=== PATIENT | male | born 1970 | race Caucasian/White ===

== ENCOUNTER 2022-06-02 09:47 | Outpatient (CLI) | payer OTHER, SELFPAY ==
[2022-06-02 11:38] LABS: Albumin* 4.3 g/dL (3.3-5.0); Chloride* 103 mmol/L (96-114)
[2022-06-02 11:39] LABS: Potassium* 5.2 mmol/L (3.6-5.1); Sodium* 138 mmol/L (135-149)
[2022-06-02 11:41] LABS: Cholesterol* 245 mg/dL (90-199); Creatinine* 0.9 mg/dL (0.5-1.5); Estimated Glomerular Filt Rate 103 ml/min
[2022-06-02 11:42] LABS: Alanine Aminotransferase* 25 U/L (4-50); Alkaline Phosphatase* 72 U/L (40-150); Aspartate Amino Transferase* 27 U/L (12-35); Bilirubin Total* 1.4 mg/dL (0.1-1.5); Blood Urea Nitrogen* 16 mg/dL (7-30); Calcium* 9.4 mg/dL (8.4-10.6); Carbon Dioxide* 29 mmol/L (20-32); Glucose* 100 mg/dL (60-115); HDL Cholesterol* 67 mg/dL (>=40); LDL Cholesterol Calculated 154 mg/dL (<100); Total Protein* 7.5 g/dL (6.0-8.3); Triglycerides* 120 mg/dL (40-149)
[2022-06-02 12:14] LABS: PSA Screen* 0.89 ng/mL (0.10-4.00)
== END 2022-06-02 09:48 | disposition home or self-care (01) ==
PROVIDERS: PCP Family Medicine; Visit Provider Family Medicine
DX: Z00.00 Encounter for general adult medical examination without abnormal findings (principal); E78.5 Hyperlipidemia, unspecified; Z12.5 Encounter for screening for malignant neoplasm of prostate
CPT/HCPCS: 80053; 80061; 84153

== ENCOUNTER 2023-01-15 13:09 | Outpatient (CLI) | payer OTHER, SELFPAY ==
[2023-01-15 23:15] LABS: Chlamydia DNA Amplified* NOT DETECTED (No Detected); GC DNA Amplified* NOT DETECTED (No Detected)
== END 2023-01-15 13:10 | disposition home or self-care (01) ==
PROVIDERS: PCP Family Medicine; Visit Provider Student in an Organized Health Care Education/Training Program
DX: R39.89 Other symptoms and signs involving the genitourinary system (principal); R30.0 Dysuria
CPT/HCPCS: 0353U; 87086

== ENCOUNTER 2023-01-15 19:05 | Inpatient (IN) | payer OTHER, SELFPAY ==
[2023-01-15 19:12] VITALS: BP 122/95; PULSE 90; RESP 18; TEMP 37.2; O2SAT 99; BMI 24.3
--- NOTE | 2023-01-15 19:27 | CRLHL7_ITS ---
For Patients: As a result of the Century Cures Act, medical imaging exams and procedure reports are released immediately into your electronic medical record. You may view this report before your referring provider. If you have questions, please contact your health care provider. INDICATION: Lower abdominal pain. Possible diverticulitis. TECHNIQUE: CT abdomen and pelvis acquired with 97 mL Isovue 370 contrast. COMPARISON: None. FINDINGS: Lower chest: Subsegmental atelectasis in the base of the right middle lobe. No focal consolidation. Liver: No suspicious focal hepatic lesion. Gallbladder and bile ducts: Unremarkable. Pancreas: Unremarkable. Spleen: Unremarkable. Splenule is noted. Adrenal glands: Unremarkable. Kidneys: Kidneys enhance symmetrically, without hydronephrosis. Retroperitoneum: No lymphadenopathy. Bowel and mesentery: Normal appendix. Multiple loops of dilated fluid-filled small bowel in the abdomen compatible with small bowel obstruction, transition point appears to be in the left lower quadrant. Configuration of the dilated small bowel raises concern for closed loop obstruction. Mild volume ascites, likely reactive. No pneumoperitoneum. Bladder: Circumferential bladder wall thickening, likely secondary to underdistention. Reproductive organs: No prostatomegaly. Subcentimeter prostatic cyst is noted. Pelvic lymph nodes: No lymphadenopathy. Vessels: Unremarkable. Abdominal wall: No acute abdominal wall abnormality. Bones: Multilevel degenerative changes of the spine. No suspicious/aggressive focal osseous lesion. IMPRESSION: 1. Multiple loops of dilated fluid-filled small bowel consistent with small bowel obstruction. Configuration raises concern for component of closed loop obstruction. Transition point appears to be in the left lower quadrant of the abdomen. 2. Circumferential urinary bladder wall thickening, likely secondary to underdistention. Recommend correlation with urinalysis. Please note that all CT scans at this facility use dose modulation, iterative reconstruction, and/or weight-based dosing when appropriate to reduce radiation dose to as low as reasonably achievable. Dictated by Elvis Quintero MD @ 01/15/2023 8:41:25 PM (Electronically Signed)
[2023-01-15 19:41] LABS: Basophils Percent Auto 0.4 % (0.0-3.0); Eosinophils Percent Auto 0.6 % (0.0-7.0); Hematocrit 43.9 % (37.0-53.0); Hemoglobin* 15.3 gm/dL (13.5-17.5); Immature Granulocytes Pct Auto 0.2 %; Lymphocytes Percent Auto 13.7 % (20-44); Mean Corpuscular HGB Conc 35 gm/dL (32-36); Mean Corpuscular Hemoglobin 30 pg (26-34); Mean Corpuscular Volume 86 fL (80-100); Monocytes Percent Auto 5.6 % (0.0-11.0); Neutrophils Percent Auto 79.5 % (42.0-72.0); Platelet Count* 276 K/uL (140-440); Red Blood Count 5.12 m/uL (4.30-5.90); White Blood Count* 11.22 K/uL (4.50-11.00)
[2023-01-15 19:45] LABS: Slide Review Reflex No
[2023-01-15 19:57] LABS: Albumin* 4.6 g/dL (3.3-5.0)
[2023-01-15 19:58] LABS: Chloride* 100 mmol/L (96-114); Potassium* 4.2 mmol/L (3.6-5.1); Sodium* 134 mmol/L (135-149)
[2023-01-15 20:00] LABS: Amylase* 74 U/L (18-89); Creatinine* 0.8 mg/dL (0.5-1.5); Estimated Glomerular Filt Rate 106 ml/min
[2023-01-15 20:01] LABS: Alkaline Phosphatase* 59 U/L (40-150); Aspartate Amino Transferase* 27 U/L (12-35); Bilirubin Direct* 0.1 mg/dL (0.0-0.5); Bilirubin Total* 2.3 mg/dL (0.1-1.5); Blood Urea Nitrogen* 9 mg/dL (7-30); Carbon Dioxide* 26 mmol/L (20-32); Glucose* 118 mg/dL (60-115); Lipase* 133 U/L (23-300)
[2023-01-15 20:02] LABS: Alanine Aminotransferase* 29 U/L (4-50); Calcium* 9.4 mg/dL (8.4-10.6)
[2023-01-15 20:04] LABS: C Reactive Protein* < 0.5 mg/dL (0.5-1.0)
--- NOTE | 2023-01-15 20:06 | ED.ABDPAIN ---
HPI - Abdominal Pain General Date Seen: 01/15/23 Chief Complaint: Abdominal Pain Stated Complaint: Abdominal pain Time Seen by Provider: 01/15/23 19:06 Source: patient Mode of arrival: ambulatory Limitations: no limitations History of Present Illness HPI narrative: Patient is a very nice 52-year-old gentleman who presents here for evaluation of lower abdominal pain that he has had for today, thought maybe had a bladder infection he feels a fullness down there, but has been urinating normally with no dysuria. Thought maybe also might be constipated but had 1 normal stool him 1 looser stool, has not eaten anything today and feels not really hungry, notices it when he walks he actually has less pain than when he sits and does nothing. Not take any ibuprofen or Tylenol for this, or any other afcf-ejk-lbbmtdt medications. Denies a fevers chills or sweats, denies nausea vomiting. No previous abdominal surgeries, he does have a history of allergies, and male pattern baldness Pertinent past history: none Onset (ago): day(s) Pain Consistency: constant Location: RLQ and LLQ Severity: moderate Quality: cramping and fullness Radiation: none Migration to: no migration Exacerbating factors: nothing Relieving factors: movement Associated symptoms: denies other symptoms Related Data Home Medications Medication Instructions Recorded Confirmed immunotherapy drops sublingual 06/04/22 01/15/23 montelukast 10 mg tablet 10 mg PO .Bedtime 06/04/22 01/15/23 minoxidil 2 % topical solution 1 ml topical BID 01/15/23 01/15/23 (Rogaine) Allergies Allergy/AdvReac Type Severity Reaction Status Date / Time No Known Allergies Allergy Unknown Verified 01/15/23 19:46 Review of Systems Status of ROS Reports: 10 or more systems reviewed and unremarkable except as noted in History and below [facility] Medical History Allergy to cats ?J30.81 - Allergic rhinitis due to animal (cat) (dog) hair and dander (ICD-10) Dyslipidemia ?E78.5 - Hyperlipidemia, unspecified (ICD-10) Fatigue ?R53.83 - Other fatigue (ICD-10) Pain in both knees ?M25.561 - Pain in right knee (ICD-10) ?M25.562 - Pain in left knee (ICD-10) Surgical History No history of previous surgery Family History Aunt Myocardial infarction, Onset Age: 42 Father Alcoholism Paternal Grandfather Alcoholism Social History Narrative: exercise involving walking- dog 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 non-smoker rarely consumes alcohol Smoking Status: Never smoker Little interest or pleasure in doing things: not at all Feeling down, depressed, or hopeless: not at all Exam Narrative: Exam Narrative: On examination room 3 patient is in no apparent distress he is pleasant and alert, able to stand up and walk around the room, pupils are equal round reactive to light there is no scleral icterus or redness TMs are normal oropharynx is normal, cranial nerves 3-12 are normal, neck is supple no meningismus, chest is clear bilaterally with no wheezing crackles noted, heart sounds are normal, abdomen shows some tenderness in lower quadrants bilaterally, left probably greater than right but also cross suprapubic pubic. No peritoneal signs, bowel sounds are quiet, no organomegaly, no CVA tenderness, normal male genitalia, no hernias, circumcised male. Extremities are all normal normal [place]lton upper lower extremities. Const: Vital Signs, click to edit/add: Vital Signs - 24 hr 01/15/23 19:12 Temperature 98.9 F Pulse Rate [Pulse Oximeter] 90 Respiratory Rate 18 Blood Pressure [Ri ght Upper Arm] 122/95 H Pulse Oximetry 99 Oxygen Delivery Me thod Room Air Documenting provider has reviewed patient's vital signs: yes Course Course Hospital Course: Reviewed the CT scanning findings with the patient this shows a possible closed loop obstruction, consultation was done with Dr. Barbara Rasheed From General surgery, she has come in to see the patient, and recommends after reviewing the CT and CT report that the patient go to the operating room for laparoscopy procedure, discussed this with the patient, the patient's and they will discuss this further with Dr. Rasheed. Vital Signs Vital signs: Initial Vital Signs Temperature 98.9 F 01/15/23 19:12 Temperature Source Temporal Artery Scan 01/15/23 19:12 Pulse Rate 90 01/15/23 19:12 Pulse Rhythm Regular 01/15/23 19:12 Pulse Strength 3+ Normal 01/15/23 19:12 Respiratory Rate 18 01/15/23 19:12 Blood Pressure 122/95 H 01/15/23 19:12 Blood Pressure Mean 104 01/15/23 19:12 Blood Pressure Position Sitting 01/15/23 19:12 Pulse Oximetry 99 01/15/23 19:12 Oxygen Delivery Method Room Air 01/15/23 19:12 Vital Signs Temperature 98.9 F 01/15/23 19:12 Pulse Rate 90 01/15/23 19:12 Respiratory Rate 18 01/15/23 19:12 Blood Pressure 122/95 H 01/15/23 19:12 Pulse Oximetry 99 01/15/23 19:12 Oxygen Delivery Method Room Air 01/15/23 19:12 Temperature 98.9 F 01/15/23 19:12 Pulse Rate 90 01/15/23 19:12 Respiratory Rate 18 01/15/23 19:12 Blood Pressure 122/95 H 01/15/23 19:12 Pulse Oximetry 99 01/15/23 19:12 Oxygen Delivery Method Room Air 01/15/23 19:12 MDM - Abdominal Pain MDM Narrative Medical decision making narrative: During this evaluation of this patient I considered multiple differential diagnosis is which included the life-threatening such as appendicitis, aortic aneurysm, mesenteric ischemia, bowel perforation, volvulus, and bowel obstruction. Other differential diagnosis is include but are not limited to cholecystitis, pancreatitis, hepatitis, gastritis, GERD, diverticulitis, peptic ulcer disease, pyelonephritis/UTI, renal colic/stone, testicular torsion as well as other acute scrotal processes, inflammatory bowel disease, as well as other etiologies Medical Records Attestation: I reviewed the patient's medical records. Lab Data Attestation: I reviewed the patient's lab results. Labs: Lab Results 01/15/23 Range/Units 19:31 WBC 11.22 H (4.50-11.00) K/uL RBC 5.12 (4.30-5.90) m/uL Hgb 15.3 (13.5-17.5) gm/dL Hct 43.9 (37.0-53.0) % MCV 86 (80-100) fL MCH 30 (26-34) pg MCHC 35 (32-36) gm/dL RDW Coeff of Jaelyn 12.0 (11.5-15.5) % Plt Count 276 (140-440) K/uL Neut % (Auto) 79.5 H (42.0-72.0) % Lymph % (Auto) 13.7 L (20-44) % [place] % (Auto) 5.6 (0.0-11.0) % Eos % (Auto) 0.6 (0.0-7.0) % Baso % (Auto) 0.4 (0.0-3.0) % Neut # (Auto) 8.90 H (1.7-7.0) K/uL Lymph # (Auto) 1.50 (0.90-2.90) K/uL [place] # (Auto) 0.60 (0.00-0.90) K/UL Eos # (Auto) 0.10 (0.00-0.50) K/uL Baso # (Auto) 0.00 (0.00-0.30) K/uL Sodium 134 L (135-149) mmol/L Potassium 4.2 (3.6-5.1) mmol/L Chloride 100 (96-114) mmol/L Carbon Dioxide 26 (20-32) mmol/L BUN 9 (7-30) mg/dL Creatinine 0.8 (0.5-1.5) mg/dL Estimated Creat Clear 131.10 Estimated GFR 106 ml/min Glucose 118 H (60-115) mg/dL Calcium 9.4 (8.4-10.6) mg/dL Total Bilirubin 2.3 H (0.1-1.5) mg/dL Direct Bilirubin 0.1 (0.0-0.5) mg/dL AST 27 (12-35) U/L ALT 29 (4-50) U/L Alkaline Phosphatase 59 (40-150) U/L C-Reactive Protein < 0.5 L (0.5-1.0) mg/dL Total Protein 8.0 (6.0-8.3) g/dL Albumin 4.6 (3.3-5.0) g/dL Amylase 74 (18-89) U/L Lipase 133 (23-300) U/L Imaging Data CT scan - abdomen: Radiologist's impression: Patient: MICHELLE STRONG Facility:?[facility] Patient ID:?[id number] Site Patient ID:?[id number]. Site :?[id number] Study:?CT Abdomen/Pelvis w/ 97cc [id number] 7:57:23 PM Ordering Physician:Ethan Self Final Report: INDICATION: Lower abdominal pain. Possible diverticulitis. TECHNIQUE: CT abdomen and pelvis acquired with 97 mL Isovue 370 contrast. COMPARISON: None. FINDINGS: Lower chest: Subsegmental atelectasis in the base of the right middle lobe. No focal consolidation. Liver: No suspicious focal hepatic lesion. Gallbladder and bile ducts: Unremarkable. Pancreas: Unremarkable. Spleen: Unremarkable. Splenule is noted. Adrenal glands: Unremarkable. Kidneys: Kidneys enhance symmetrically, without hydronephrosis. Retroperitoneum: No lymphadenopathy. Bowel and mesentery: Normal appendix. Multiple loops of dilated fluid-filled small bowel in the abdomen compatible with small bowel obstruction, transition point appears to be in the left lower quadrant. Configuration of the dilated small bowel raises concern for closed loop obstruction. Mild volume ascites, likely reactive. No pneumoperitoneum. Bladder: Circumferential bladder wall thickening, likely secondary to underdistention. Reproductive organs: No prostatomegaly. Subcentimeter prostatic cyst is noted. Pelvic lymph nodes: No lymphadenopathy. Vessels: Unremarkable. Abdominal wall: No acute abdominal wall abnormality. Bones: Multilevel degenerative changes of the spine. No suspicious/aggressive focal osseous lesion. IMPRESSION: 1. Multiple loops of dilated fluid-filled small bowel consistent with small bowel obstruction. Configuration raises concern for component of closed loop obstruction. Transition point appears to be in the left lower quadrant of the abdomen. 2. Circumferential urinary bladder wall thickening, likely secondary to underdistention. Recommend correlation with urinalysis. Please note that all CT scans at this facility use dose modulation, iterative reconstruction, and/or weight-based dosing when appropriate to reduce radiation dose to as low as reasonably achievable. Dictated by Elvis Quintero MD @ 01/15/2023 8:41:25 PM (Electronic Signature) Discharge Plan Discharge Clinical Impression: Complete obstruction of small intestine Patient Disposition: Admitted As Inpatient Condition: Stable Prescriptions: No Action montelukast 10 mg tablet 10 mg PO .Bedtime immunotherapy drops sublingual minoxidil [Rogaine] 2 % solution 1 ml topical BID Follow Up/Referrals: Sarah Pascal MD [Primary Care Provider] -
[2023-01-15] MEDS: KETOROLAC 30 MG/ML inj IVP (20:20)
[2023-01-15] MEDS: 0.9 % SODIUM CHLORIDE 1000 ml 1,000 ML IV (20:20)
[2023-01-15] MEDS: 0.9 % SODIUM CH + KCL 20 mEq/L 1,000 ML 125 ML IV (21:34)
[2023-01-15 21:48] LABS: PCR FLU A Negative PCR FLU A (Negative); PCR FLU B Negative PCR FLU B (Negative); SARS PCR* Negative SARS-CoV-2 (Negative)
--- NOTE | 2023-01-15 21:49 | PM.GSCN ---
History of Present Illness Consult details Date Seen: 01/15/23 Consult date: 01/15/23 Narrative: Patient presented to the emergency department with worsening lower abdominal pain and discomfort. He states that the pain started yesterday evening around 11:30 p.m.. Initially he felt a sensation of fullness, like he had to urinate. He did go to the bathroom to pee, but this did not relieve any of the pressure or fullness. He also had 2 small bowel movements. He was unable to sleep last night secondary to the discomfort. All day today the pain persisted. He did present to Urgent Care, where a UA was obtained and within normal limits. He was sent home, but he felt a easy about the abdominal discomfort and he thought that the pain was increasing in intensity, which is what brought him into the emergency department. He has never had pain like this before. He does not think he has been passing gas today. Denies any emesis, but has been having some intermittent nausea. He has never had abdominal surgery before. He is otherwise healthy. Review of Systems Status of ROS: Reports: 10 or more systems reviewed and unremarkable except as noted in History and below [facility] Medical History Allergy to cats ?J30.81 - Allergic rhinitis due to animal (cat) (dog) hair and dander (ICD-10) Dyslipidemia ?E78.5 - Hyperlipidemia, unspecified (ICD-10) Fatigue ?R53.83 - Other fatigue (ICD-10) Pain in both knees ?M25.561 - Pain in right knee (ICD-10) ?M25.562 - Pain in left knee (ICD-10) Surgical History No history of previous surgery Family History Aunt Myocardial infarction, Onset Age: 42 Father Alcoholism Paternal Grandfather Alcoholism Social History Narrative: exercise involving walking- dog 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 non-smoker rarely consumes alcohol Smoking Status: Never smoker Little interest or pleasure in doing things: not at all Feeling down, depressed, or hopeless: not at all Meds Home Medications and Allergies Home Medications Medication Instructions Recorded Confirmed Type immunotherapy drops sublingual 06/04/22 01/15/23 History montelukast 10 mg tablet 10 mg PO .Bedtime 06/04/22 01/15/23 History minoxidil 2 % topical solution 1 ml topical BID 01/15/23 01/15/23 History (Rogaine) Allergies Allergy/AdvReac Type Severity Reaction Status Date / Time No Known Allergies Allergy Unknown Verified 01/15/23 19:46 Exam Narrative: Exam Narrative: General: Alert and oriented, no acute distress. Nontoxic in appearance. Respiratory: Equal breath rise bilaterally, maintained on room air CV: Regular rhythm rate, well perfused Abdomen: Mild distention, soft, tender to palpation in the lower quadrants and around the umbilicus with no guarding or rebound. Const: Vital Signs, click to edit/add: Vital Signs - 24 hr 01/15/23 19:12 Temperature 98.9 F Pulse Rate [Pulse Oximeter] 90 Respiratory Rate 18 Blood Pressure [Ri ght Upper Arm] 122/95 H Pulse Oximetry 99 Oxygen Delivery Me thod Room Air Results Labs Labs: Abnormal lab results 01/15/23 Range/Units 19:31 WBC 11.22 H (4.50-11.00) K/uL Neut % (Auto) 79.5 H (42.0-72.0) % Lymph % (Auto) 13.7 L (20-44) % Neut # (Auto) 8.90 H (1.7-7.0) K/uL Sodium 134 L (135-149) mmol/L Glucose 118 H (60-115) mg/dL Total Bilirubin 2.3 H (0.1-1.5) mg/dL C-Reactive Protein < 0.5 L (0.5-1.0) mg/dL Diabetes panel 01/15/23 Range/Units 19:31 Sodium 134 L (135-149) mmol/L Potassium 4.2 (3.6-5.1) mmol/L Chloride 100 (96-114) mmol/L Carbon Dioxide 26 (20-32) mmol/L BUN 9 (7-30) mg/dL Creatinine 0.8 (0.5-1.5) mg/dL Glucose 118 H (60-115) mg/dL Calcium 9.4 (8.4-10.6) mg/dL AST 27 (12-35) U/L ALT 29 (4-50) U/L Alkaline Phosphatase 59 (40-150) U/L Total Protein 8.0 (6.0-8.3) g/dL Albumin 4.6 (3.3-5.0) g/dL Calcium panel 01/15/23 Range/Units 19:31 Calcium 9.4 (8.4-10.6) mg/dL Albumin 4.6 (3.3-5.0) g/dL Pituitary panel 01/15/23 Range/Units 19:31 Sodium 134 L (135-149) mmol/L Potassium 4.2 (3.6-5.1) mmol/L Chloride 100 (96-114) mmol/L Carbon Dioxide 26 (20-32) mmol/L BUN 9 (7-30) mg/dL Creatinine 0.8 (0.5-1.5) mg/dL Glucose 118 H (60-115) mg/dL Calcium 9.4 (8.4-10.6) mg/dL Adrenal panel 01/15/23 Range/Units 19:31 Sodium 134 L (135-149) mmol/L Potassium 4.2 (3.6-5.1) mmol/L Chloride 100 (96-114) mmol/L Carbon Dioxide 26 (20-32) mmol/L BUN 9 (7-30) mg/dL Creatinine 0.8 (0.5-1.5) mg/dL Glucose 118 H (60-115) mg/dL Calcium 9.4 (8.4-10.6) mg/dL Total Bilirubin 2.3 H (0.1-1.5) mg/dL AST 27 (12-35) U/L ALT 29 (4-50) U/L Alkaline Phosphatase 59 (40-150) U/L Total Protein 8.0 (6.0-8.3) g/dL Albumin 4.6 (3.3-5.0) g/dL All other labs normal. Imaging Abdomen CT scan report/results: report reviewed and image reviewed Assessment and Plan Assessment and plan (1) Complete obstruction of small intestine: Status: Acute Plan Patient is an otherwise healthy 52-year-old male who presents with a one-day history abdominal distension and pain. Workup has been obtained with vital signs stable and labs within normal limits. CT scan does demonstrate what appears to be a closed loop bowel obstruction with evidence of some mesenteric twisting. No masses seen on the scan and no evidence of any necrotic bowel. Patient has never had abdominal surgery before. Findings could be secondary to an internal hernia versus congenital scar tissue. Cancer is always considered as a possible lead point in the setting of no previous surgery, however no lymphadenopathy or mass is seen on CT imaging. He has had 1 colonoscopy, with no findings at that time. The findings were reviewed with the patient and his , as well as my recommendations to proceed to the operating room for an exploratory laparotomy with possible small-bowel resection. Risks and benefits of operative intervention were discussed at length with the patient. Risks included but was not limited to: Bleeding, infection, risk of damage to surrounding structures, possible need for additional procedures and postoperative complications such as pneumonia, pulmonary emboli or [place]. All questions and concerns were addressed with the patient agreeing to proceed.
[2023-01-15] MEDS: LACTATED RINGERS 1000 ML 1,000 ML 100 ML IV (22:16)
[2023-01-15] MEDS: CEFAZOLIN 2 GM INJ IVP (22:26)
[2023-01-16] VITALS (36 sets, daily range): BP systolic 104–132; BP diastolic 64–89; PULSE 73–103; RESP 14–18; TEMP 36.5–37.4; O2SAT 93–98
--- NOTE | 2023-01-16 00:09 | P.GSOP_ITS ---
Operative Note Date of procedure: 01/16/23 Pre-op diagnosis: Closed loop small-bowel obstruction Post-op diagnosis: Same Type of Procedure: Exploratory laparotomy Indications: Patient is a 52-year-old male who presented to the emergency department with workup consistent with small-bowel obstruction. A CT scan was obtained which demonstrated a closed loop obstruction. Risks and benefits of operative intervention were discussed at length with the patient. Risks included but was not limited to: Bleeding, infection, risk of damage to surrounding structures, possible need for additional procedures, and postoperative complications such as pneumonia, pulmonary emboli or [place]. All questions and concerns were addressed with the patient agreeing to proceed. Procedure Description: After discussing the risks and benefits of the procedure, the patient signed informed consent.? The operative site was marked and the patient was brought to the operating room and placed on the operating table in supine position.? Care was taken to pad the patient's pressure points.?? The patient was then intubated by anesthesia.??A Saab catheter was placed under sterile conditions. An NG tube was placed by the PNEUMATIC HOIST OPERATOR. The operative site was then prepped and draped in the usual sterile fashion.? A time-out was then performed. An inferior midline incision was made with a 15 scalpel. Dissection was carried through subcutaneous tissue with cautery down to the anterior fascia. The fascia was incised with cautery to allow a finger through. The anterior fascia was then extended cranial and caudad. The underlying peritoneum was carefully dissected free and sharply incised. The peritoneal incision was then extended cranial and caudad with electrocautery. Upon entering the abdomen a moderate amount of murky fluid was present. There was dilated bowel within the operative field. This was gently eviscerated and the bowel run distally. As the bowel was eviscerated there was a point of transition identified. At this area there was an initial compression, consistent with a stricture point. The bowel was palpated and there was no intraluminal masses identified. The bowel distal to this point was decompressed. At this time the decision was made to extend the incision to just above the umbilicus. A large [place]a wound retractor was placed within the abdomen. The bowel was then run from ligament of Treitz to terminal ileum with no areas of bowel compromise identified and no additional points of transition seen. The small bowel was then placed carefully back into the abdomen, taking care not to twist the mesentery. The right and left lower pelvic quadrants were examined closely, with no adhesions or tissue defects identified to suggest an internal hernia. The right side of the colon was carefully examined. The appendix was visualized and within normal limits. There were some lateral attachments of the terminal ileum, but again no mesenteric defects identified. The left side of the colon was also examined closely with a defect noted along the lateral wall of the colon. This was approximately 2 cm in size and closed with a stitch of 3-0 Vicryl. The liver, spleen and stomach were examined and all within normal limits. The overlying omentum was lifted to again visualize the ligament of Treitz, with no mesenteric defects revisualized. The fascial incision was then closed with 2 looped 0 Maxon suture. The incision was irrigated with normal saline. The incision was closed in layers with interrupted 3 0 Vicryl and running 4-0 Monocryl. ? Sterile dressings were then applied. ? The patient was then woken and transported to the recovery area in stable condition. ? The patient tolerated the procedure well. Findings: Transition point mid ileum. Small tissue defect of the lateral abdominal wall suggestive of internal hernia. Anesthesia: GETA Surgeon: Barbara Rasheed MD Estimated blood loss (mL): 2 Condition: stable Disposition: floor
--- NOTE | 2023-01-16 00:14 | SUR.OPER ---
NG INSERTED AT START OF CASE PER ANTISQUEAK FILLER AT REQUEST OF
--- NOTE | 2023-01-16 00:31 | P.NB_ITS ---
Nerve Block Nerve Block Time Seen by Provider: 00:15 Date Seen: 01/16/23 Type of block requested by surgeon for post-operative analgesia: TAP Side: bilateral Time out performed: Yes Verification of patient name: Yes Verification of date of : Yes Site marking: not applicable Name of person performing procedure: steven Continuous monitoring Was continuous monitoring of O2 sat, B/P, quality assurance monitor body, recorded every 15 minutes?: Yes Procedure Checklist: sterile prep, needles and gloves Ultrasound guided. Images saved: Yes Medications given in 5ml increments after negative aspiration: Marcaine %: 0.25 mL: 30 Needle gauge: 20 and Exparel mL: 10 Patient tolerated procedure well: Yes Block Charges Block Charge (with Pro Fee): TAP Bilateral Use of Ultrasound Machine for Block: Yes- US Guidance/pain block
--- NOTE | 2023-01-16 00:32 | W.ANESCHARGE ---
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
[2023-01-16] MEDS: 0.9 % SODIUM CHLORIDE 1000 ml 1,000 ML 125 ML IV ×3 (01:30→17:36)
--- NOTE | 2023-01-16 06:34 | PC.NURSE ---
END OF SHIFT NOTE: PT PLEASANT,?COOPERATIVE AND FATIGUED. EX LAP SX 01/15 FOR ABD PAIN/SBO. PT ARRIVED TO M/S UNIT @0057. NG PLACED IN LEFT NARE AT LIS WITH GREEN, BLOOD-TINGED OUTPUT.?PT RATES MIDLINE INCISIONAL PAIN 10/28. DRESSING IS CDI.?PT DENIES?CP, SOB, N/V. WATERS IN PLACE DRAINING LIGHT KIMBERLY?URINE. VSS ON RA; AFEBRILE. BED ALARM ON AND CALL LIGHT WITHIN PT?S REACH. PT HAS BEEN NPO AND DID NOT AMBULATE THIS SHIFT.?
--- NOTE | 2023-01-16 14:04 | PC.NURSE ---
Patient alert and oriented x 3. Reports minimal pain to abdominal incision, rated 1/10, no medications needed throughout this shift. NG and snyder catheter discontinued, patient tolerated well. CLear liquid diet, no nausea or vomiting reported. Ambulated throughout the unit with stand by assist. Able to pass urine after snyder removed. Lungs clear, bowel sounds active x 4 quadrants.
--- NOTE | 2023-01-16 18:06 | PC.NURSE ---
[id number]: Patient doing well. Patient has no c/o abdominal pain, shortness of breath, n/v, or chest pain. Patient still not passing gas yet and no bowel movement but does have active bowel sounds. Patient incision bandage c/d/i with small amount of old drainage on bandage. Patient tolerating foods well. Patient ate toast, chicken noodle soup and freeze pop for dinner. Patient tolerated dinner well. Nursing spoke with Dr. Rasheed whom states that was fine for dinner but to leave patient on clears until he starts to pass gas or has a bowel movement. Nursing communicated this with patient and encouraged patient to increase oral liquids and increase ambulation. Patient ambulated around pod x2 with no dizziness, lightheadedness or shortness of breath. Patient with no complaints. Patient vitally stable. Patient able to verbalize needs and is call light appropriate. Nursing will continue to monitor patient throughout shift.
[2023-01-17 01:50] VITALS: BP 132/75; PULSE 82; RESP 18; TEMP 36.9; O2SAT 95
--- NOTE | 2023-01-17 04:47 | PC.NURSE ---
[id number]: Patient pleasant and cooperative. Denies pain and declines pain medications. Passing gas and belching. BS active. Patient active and observed walking in halls. Denies N/V. Tolerating clears. Midline dressing to abdomen C/D/I with small amount old drainage. Ice to op site.
[2023-01-17 06:40] LABS: Basophils Absolute Auto 0.04 K/uL (0.00-0.30); Basophils Percent Auto 0.5 % (0.0-3.0); Eosinophils Absolute Auto 0.32 K/uL (0.00-0.50); Eosinophils Percent Auto 4.2 % (0.0-7.0); Hematocrit 37.8 % (37.0-53.0); Hemoglobin* 12.9 gm/dL (13.5-17.5); Immature Granulocytes Abs Auto 0.02 K/uL (0.00-0.30); Immature Granulocytes Pct Auto 0.3 %; Lymphocytes Absolute Auto 2.01 K/uL (0.90-2.90); Lymphocytes Percent Auto 26.7 % (20-44); Mean Corpuscular HGB Conc 34 gm/dL (32-36); Mean Corpuscular Hemoglobin 30 pg (26-34); Mean Corpuscular Volume 88 fL (80-100); Monocytes Percent Auto 8.5 % (0.0-11.0); Neutrophils Absolute Auto 4.51 K/uL (1.7-7.0); Neutrophils Percent Auto 59.8 % (42.0-72.0); Platelet Count* 228 K/uL (140-440); RDW Coefficient of Variation % 12.5 % (11.5-15.5); Red Blood Count 4.32 m/uL (4.30-5.90); White Blood Count* 7.54 K/uL (4.50-11.00)
[2023-01-17 06:49] LABS: Slide Review Reflex No
[2023-01-17 06:54] LABS: Chloride* 106 mmol/L (96-114); Potassium* 3.9 mmol/L (3.6-5.1); Sodium* 137 mmol/L (135-149)
[2023-01-17 06:57] LABS: Blood Urea Nitrogen* 7 mg/dL (7-30); Calcium* 8.5 mg/dL (8.4-10.6); Carbon Dioxide* 30 mmol/L (20-32); Creatinine* 0.7 mg/dL (0.5-1.5); Est. Creatinine Clearance* 149.83; Estimated Glomerular Filt Rate 110 ml/min; Glucose* 103 mg/dL (60-115)
[2023-01-17 07:00] VITALS: BP 110/75; PULSE 85; RESP 18; RESP 22; TEMP 37.1; O2SAT 95
[2023-01-17] MEDS: ACETAMINOPHEN 325 MG TABLET 650 MG PO (08:10)
--- NOTE | 2023-01-17 09:55 | PM.GSPN ---
Subjective Subjective Date Seen: 01/16/23 Interval history: Patient is doing ok this morning. Denies any nausea, has not yet passed gas. Has been ambulating. Pain is well controlled. Exam Narrative: Exam Narrative: Gen: Alert and oriented, no acute distress Resp: clear breath sounds bilaterally CV: RRR Abdomen: appropriately tender over incision site, dressing c/d/i, no guarding or rebound Const: Vital Signs, click to edit/add: Vital Signs - 24 hr 01/16/23 11:00 01/16/23 15:00 01/16/23 15:00 Temperature 98.9 F 98.7 F Pulse Rate 89 79 Respiratory Rate 18 18 18 Blood Pressure 109/68 126/70 Pulse Oximetry 97 97 Oxygen Delivery Me thod Room Air Room Air 01/16/23 20:33 01/16/23 22:01 01/17/23 01:50 Temperature 98.7 F 98.7 F 98.5 F Pulse Rate 87 80 82 Respiratory Rate 18 18 18 Blood Pressure 123/76 123/70 132/75 Pulse Oximetry 97 96 95 Oxygen Delivery Me thod Room Air Room Air Room Air Progress Note: A&P Assessment and plan (1) Complete obstruction of small intestine: Status: Acute Assessment and Plan: Patient is postop day 1 exploratory laparotomy for complete obstruction. With no evidence of adhesions, questionable internal hernia with tissue defect closed intraoperatively. Doing well postoperatively. Will continue with clear liquids and wait to advance diet until patient passes gas. NG tube and Saab were removed at bedside this morning.
--- NOTE | 2023-01-17 09:58 | PM.DS1 ---
DS: Providers Provider Date Seen: 01/17/23 Date of admission: 01/16/23 16:30 Primary care physician: Sarah Pascal MD Admitting Clinician: Barbara Rasheed MD Attending Physician on discharge: Barbara Rasheed MD DS: Summary Hospital Course Hospital Course: Patient presented to the emergency department with worsening abdominal pain and signs of obstruction. A CT scan was obtained which demonstrated close loop obstruction. He was taken to the operating room for an exploratory laparotomy. The bowel was run with a transition point noted and area of possible herniation. The defect was closed, small-bowel was run and appeared healthy. On postop day 1 NG tube and Saab were removed. On postop day 2 patient was passing gas and tolerating a diet. His pain was well controlled with oral medications, he was ambulating without difficulty and voiding independently. Time Spent with Patient Time attestation: Total time spent providing and/or coordinating discharge services: Exam Const: Vital Signs, click to edit/add: Vital Signs - 24 hr 01/16/23 11:00 01/16/23 15:00 01/16/23 15:00 Temperature 98.9 F 98.7 F Pulse Rate 89 79 Respiratory Rate 18 18 18 Blood Pressure 109/68 126/70 Pulse Oximetry 97 97 Oxygen Delivery Me thod Room Air Room Air 01/16/23 20:33 01/16/23 22:01 01/17/23 01:50 Temperature 98.7 F 98.7 F 98.5 F Pulse Rate 87 80 82 Respiratory Rate 18 18 18 Blood Pressure 123/76 123/70 132/75 Pulse Oximetry 97 96 95 Oxygen Delivery Me thod Room Air Room Air Room Air DS: Data Data Completed and Pending Labs on day of discharge: Labs from last 24 hours 01/17/23 06:00 WBC 7.54 RBC 4.32 Hgb 12.9 L Hct 37.8 MCV 88 MCH 30 MCHC 34 RDW Coeff of Jaelyn 12.5 Plt Count 228 Neut % (Auto) 59.8 Lymph % (Auto) 26.7 Norman % (Auto) 8.5 Eos % (Auto) 4.2 Baso % (Auto) 0.5 Neut # (Auto) 4.51 Lymph # (Auto) 2.01 Norman # (Auto) 0.60 Eos # (Auto) 0.32 Baso # (Auto) 0.04 Sodium 137 Potassium 3.9 Chloride 106 Carbon Dioxide 30 BUN 7 Creatinine 0.7 Estimated Creat Clear 149.83 Estimated GFR 110 Glucose 103 Calcium 8.5 Discharge Plan Discharge Disposition: Home, Self-Care Date of Admission: 01/16/23 16:30 Attending Provider on Discharge: Barbara Rasheed Primary Care Provider: Sarah Pascal Condition: Stable Anticipated Discharge Date/Time: 01/17/23 10:00 Discharge Medications: New oxycodone 5 mg tablet 5 mg PO Q6H PRN (Reason: pain) Qty: 10 0RF senna 8.6 mg capsule 8.6 mg PO DAILY PRN (Reason: constipation) Qty: 90 0RF Continued montelukast 10 mg tablet 10 mg PO HS immunotherapy drops 1 ea sublingual DAILY minoxidil [Rogaine] 2 % solution 1 ml topical BID Discharge Orders: Discharge Order (Routine); Ordered 01/17/23 Ordered By: Barbara Rasheed Patient Education: Bowel Obstruction (DC) Additional Instructions: You were prescribed a narcotic pain medication. In addition you may supplement with Tylenol and/or ibuprofen. Be sure to not exceed greater than 4 g of Tylenol in a 24 hour period. While on narcotic pain medicine please take stool softeners. A prescription of stool softeners has been sent to the pharmacy. Stop if having greater than 2 stools per day. You can start showering right away. Do not soak in a bath or swim for 2 weeks. Allow Steri-Strips to fall off on their own. Activity Level: No strenuous activity Activity Detail: Activity as tolerated. Avoid strenuous activity. No lifting greater than 20 lb for 6 weeks. You can wear an abdominal binder as needed for comfort. Discharge Diet: Regular Follow Up Appointments: Barbara Rasheed MD [Staff Physician] - (Two week follow-up) Forms: [employer] Info Instructions
[2023-01-17] MEDS: bisacodyL 10 MG SUPP.RECT PR (10:11)
--- NOTE | 2023-01-17 12:00 | PC.NURSE ---
AVS reviewed. All concerns addressed. Patient vitally stable. Patient passing gas appropriately and has active bowel sounds. patient has no n/v. Patient discharged to home.
== END 2023-01-17 10:02 | disposition home or self-care (01) | DRG 358 ==
LOC: ED 21:28 → SS 21:48 → MEDSURG 01-16 01:08 → SS 01-17 16:28 → MEDSURG 01-17 16:28
PROVIDERS: Admitting Provider Surgery; Emergency Provider Family Medicine; PCP Family Medicine; Visit Provider Surgery
PROC: 0DJD0ZZ Inspection of Lower Intestinal Tract, Open Approach (ICD-10-PCS; CPT 49000; principal; 2023-01-15 21:45)
DX: K56.601 Complete intestinal obstruction, unspecified as to cause (principal); E78.5 Hyperlipidemia, unspecified
CPT/HCPCS: 00840; 0353U; 36415; 74177; 76942; 80048; 80076; 82150; 83690; 85025; 86140; 87631; 99140; 99285; A9270; J0330; J0690; J1100; J1885; J2250; J2405; J2704; J3010; J3475; J3490; J7030; J7120; Q9967

== ENCOUNTER 2023-06-03 07:42 | Outpatient (CLI) | payer OTHER, SELFPAY | END 2023-06-03 07:43 | disposition home or self-care (01) | LOC: NFLDREF 06-07 14:40 | PROVIDERS: PCP Family Medicine; Referring Provider Family Medicine; Visit Provider Family Medicine | DX: Z00.00 Encounter for general adult medical examination without abnormal findings (principal); Z13.9 Encounter for screening, unspecified; E78.5 Hyperlipidemia, unspecified; Z12.5 Encounter for screening for malignant neoplasm of prostate; Z13.1 Encounter for screening for diabetes mellitus | CPT/HCPCS: 80061; 82947; 84153 ==

== ENCOUNTER 2024-06-10 07:55 | Outpatient (CLI) | payer BC, SELFPAY ==
--- OUTSIDE RECORDS SUMMARY | 2024-06-14 19:53 | XMS_ITS | Clinical Summary ---
Author Organization [facility] Address [address] [address] Care Team Providers Care Medical Sales Representative Name Role Phone Md PHILIPP Brownlee Primary Care Provider [phone] Source Comments You are receiving this document as you are listed as the primary care provider,follow-up provider, or the patient has been referred to you for consultation.This is in compliance with the Medicare and[facility] EHR Incentive Program,which states Providers who transition their patient to another setting of careor provider of care or refers their patient to another provider of care shouldprovide summary care record for each transition of care or referral. [facility] Allergies No known active allergies Medications Medication Sig Dispensed Refills Start Date End Date Status azithromycin (ZITHROMAX) 500 MG tabletIndications:Cou nseling for travel Take 1 tab daily for 3 days as needed for severe travelers diarrhea. 3 Tab 06/23/2017 Active Active Problems No known active problems Immunizations Name Administration Dates Next Due Chicken Pox - History of Illness 1974 HepA Adult (19+ yrs) 07/06/2007,12/31/2006 HepB Adult (Engerix-B, 20+ y rs, 3 dose series) 10/21/2017,07/21/2017,06/23/2017 MMR 08/25/1994,02/09/1974,04/11/1970 Tdap 06/23/2017 Typhoid (Vivotif, Oral) 06/23/2017 YF (Yellow Fever) 02/26/1996 Social History Tobacco Use Types Packs/Day Years Used Date Smoking Tobacco: Never Sex and Gender Information Value Date Recorded Sex Assigned at Not on file Gender Identity Not on file Sexual Orientation Not on file Last Filed Vital Signs Vital Sign Reading Time Taken Comments Blood Pressure 114/74 07/02/2009 9:00 AM CDT Pulse 74 07/02/2009 9:00 AM CDT Temperature 36.1 ??C (97 ??F) 07/02/2009 9:00 AM CDT C: 36.1 C Respiratory Rate 16 07/02/2009 9:00 AM CDT Oxygen Saturation - - Inhaled Oxygen Concentration - - Weight - - Height - - Body Mass Index - - Plan of Treatment Health Maintenance Due Date Last Done Comments Colon Cancer Screening Plan Due 1969 Hep C Screening (Preventive Services) 1969 PSA Screening Discussion 1969 HIV Screening (Preventive Services) 1985 Adult Preventive Visit 1987 Cholesterol 2004 Zoster/Shingles (1 of 2) 2019 COVID-19 Vaccine (1 - 2022-2 4 season) 2023 Influenza (#1) 2024 DTaP/Tdap/Td (2 - Tdap) 06/23/2027 06/23/2017 HepA Aged Out 07/06/2007, 12/31/2006 No longer eligible based on patient's age to complete this topic HepB Completed 10/21/2017, 07/21/2017, 06/23/2017 Hib Aged Out No longer eligi ble based on patient's age to complete this topic IPV (Polio) Aged Out No longer eligi ble based on patient's age to complete this topic MCV4 Aged Out No longer eligi ble based on patient's age to complete this topic Pneumococcal Aged Out No longer eligi ble based on patient's age to complete this topic Care Teams Medical Sales Representative Relationship Specialty Start Date End Date Md Torrie, [place] [address] PCP - General 01/20/11
== END 2024-06-10 07:56 | disposition home or self-care (01) ==
LOC: NFLDREF 06-14 19:51
PROVIDERS: PCP Family Medicine; Referring Provider Family Medicine; Visit Provider Family Medicine
DX: E78.5 Hyperlipidemia, unspecified (principal); Z12.5 Encounter for screening for malignant neoplasm of prostate; Z13.1 Encounter for screening for diabetes mellitus
CPT/HCPCS: 80061; 82947; G0103

== ENCOUNTER 2024-07-20 07:30 | Outpatient (RCR) | payer BC, SELFPAY | END 2024-11-17 23:59 | disposition home or self-care (01) | PROVIDERS: PCP Family Medicine; Visit Provider Family Medicine | DX: M25.511 Pain in right shoulder (principal); M54.51 Vertebrogenic low back pain; M25.69 Stiffness of other specified joint, not elsewhere classified; Z51.89 Encounter for other specified aftercare | CPT/HCPCS: 97110; 97161 ==

== ENCOUNTER 2025-06-13 07:39 | Outpatient (CLI) | payer BC, SELFPAY | END 2025-06-13 07:40 | disposition home or self-care (01) | LOC: NFLDREF 06-15 14:14 | PROVIDERS: PCP Family Medicine; Referring Provider Family Medicine; Visit Provider Family Medicine | DX: E78.5 Hyperlipidemia, unspecified (principal); R73.01 Impaired fasting glucose; R53.83 Other fatigue; Z12.5 Encounter for screening for malignant neoplasm of prostate | CPT/HCPCS: 80053; 80061; G0103 ==